=== PATIENT | female | born 1995 | race African-American/Black ===

== ENCOUNTER 2020-08-12 21:10 | Emergency (ER) | payer BC, MEDICAID ==
[~2020-08-12] VITALS: Ht 160 cm; Wt 65.6 kg
[2020-08-12] MEDS ORDERED: ONDANSETRON HCL 4MG/2ML INJ IV STA ×2 (23:06→23:43)
[2020-08-12] MEDS ORDERED: SODIUM CHLORIDE 0.9% 1,000 ML IV ONE ×2 (23:15→23:45)
[2020-08-12] MEDS ORDERED: MORPHINE SULFATE 4 MG/ML CPJ (NOT FOR IM USE) IV ONE (23:15)
[2020-08-12] MEDS ORDERED: ACETAMINOPHEN 325MG TABLET PO STA (23:43)
[2020-08-13] MEDS ORDERED: TOPUD PO (00:08)
[2020-08-13 01:35] VITALS: BP 104/42
== END 2020-08-13 01:50 | disposition home or self-care (01) ==
LOC: ER 21:10
DX: O26.892 Other specified pregnancy related conditions, second trimester (principal); R51.9 Headache, unspecified; R94.6 Abnormal results of thyroid function studies; Z3A.19 19 weeks gestation of pregnancy
CPT/HCPCS: 96361; 96374; 99283; J2405; J7030

== ENCOUNTER 2021-01-01 14:14 | Inpatient (IN) | payer MEDICAID ==
[~2021-01-01] VITALS: Ht 162.6 cm; Wt 81.6 kg
[~2021-01-01 14:14] MED LIST: TOPUD PO
[2021-01-01] MEDS ORDERED: NALOXONE HCL 0.4 MG/ML 1ML VIAL IM PRN (15:45)
[2021-01-01] MEDS ORDERED: BUTORPHANOL TARTRATE 2 MG/ML VIAL IV PRN (15:45)
[2021-01-01] MEDS ORDERED: DEXT 5%/LR + PITOCIN 20UNITS/L 1,000 ML IV SCH (15:45)
[2021-01-01] MEDS ORDERED: METHYLERGONOVINE MALEATE 0.2 MG/ML IM PRN (15:45)
[2021-01-01] MEDS ORDERED: LIDOCAINE HCL 1% 20ML VIAL (Pyxis) INJ INFIL SCH (15:45)
[2021-01-01] MEDS ORDERED: CARBOPROST TROMETHAMINE 250 MCG/ML AMPUL IM PRN (15:45)
[2021-01-01 19:11] LABS: CLARITY URINE CLEAR (CLEAR); COLOR URINE YELLOW (YELLOW); KETONES URINE NEGATIVE (NEGATIVE); LEUKOCYTE ESTERASE URINE 2+ (NEGATIVE); NITRITE URINE NEGATIVE (NEGATIVE); OCCULT BLOOD URINE 2+ (NEGATIVE); PH URINE 6.5 (4.5-8.0); PROTEIN URINE NEGATIVE (NEGATIVE); SPECIFIC GRAVITY URINE 1.009 (1.005-1.030); UROBILINOGEN URINE 0.2 E.U./dL (0.2-1.0)
[2021-01-01 19:18] LABS: BASOPHILS % 0.2 % (0.0-2.0); EOSINOPHILS % 1.4 % (0.0-5.0); HEMATOCRIT. 37.4 % (36.0-48.0); LYMPHOCYTES % 15.2 % (20.0-50.0); MEAN CORPUSCULAR VOLUME 90.1 fL (81.0-99.0); MEAN PLATELET VOLUME 10.4 fl (7.4-10.4); MONOCYTES % 11.2 % (2.0-8.0); PLATELET 170 x1000/uL (130-400); RED BLOOD CELL COUNT 4.15 mill/uL (4.2-5.4); RED CELL DISTRIBUTION WIDTH 15.5 % (11.6-14.6)
[2021-01-01 19:21] LABS: INR 0.9; PROTHROMBIN TIME 9.9 sec (9.6-11.0)
[2021-01-01 19:22] LABS: *AMPHETAMINES SCREEN URINE NEGATIVE (NEGATIVE); *BARBITURATES SCREEN URINE NEGATIVE (NEGATIVE); *BENZODIAZEPINES SCREEN URINE NEGATIVE (NEGATIVE); *COCAINE SCREEN URINE NEGATIVE (NEGATIVE); CANNABINOID URINE SCREEN NEGATIVE (NEGATIVE); METHADONE URINE SCREEN NEGATIVE (NEGATIVE); OPIATES URINE SCREEN NEGATIVE (NEGATIVE); PHENCYCLIDINE URINE SCREEN NEGATIVE (NEGATIVE)
[2021-01-01] MEDS: LACTATED RINGERS 1,000 ML IV SCH ×2 (19:31→21:18)
[2021-01-01 20:14] LABS: HEPATITIS B SURFACE ANTIGEN NEGATIVE
[2021-01-01] MEDS ORDERED: ROPIVACAINE HCL/PF EPIDURAL 200 ML EPI SCH (21:15)
[2021-01-01] MEDS ORDERED: ROPIVACAINE HCL/PF EPIDURAL 200 ML EPI ONE (21:21)
[2021-01-01] MEDS ORDERED: FENTANYL CITRATE/PF 50MCG/ML 2ML VIAL ONE (21:21)
[2021-01-02] MEDS: LACTATED RINGERS 1,000 ML IV SCH (02:56)
[2021-01-02] MEDS ORDERED: IBUPROFEN 400MG TABLET PO PRN (06:45)
[2021-01-02] MEDS ORDERED: DIPHENHYDRAMINE 25MG CAPSULE PO PRN (06:45)
[2021-01-02] MEDS ORDERED: BENZOCAINE/LANOLIN/ALOE VERA SPRAY TOP PRN (06:45)
[2021-01-02] MEDS ORDERED: RHO(D) IMMUNE GLOBULIN 300 MCG/SYR IM PRN (06:45)
[2021-01-02] MEDS ORDERED: LANOLIN OINT 7GM TUBE TOP PRN (06:45)
[2021-01-02] MEDS ORDERED: ACETAMINOPHEN WITH CODEINE 300/30MG TABLET PO PRN (06:45)
[2021-01-02] MEDS ORDERED: GLYCERIN/WITCH HAZEL LEAF MEDICATED PAD TOP PRN (06:45)
[2021-01-02] MEDS ORDERED: BISACODYL 10MG SUPP PR PRN (06:45)
[2021-01-02] MEDS ORDERED: HEMORRHOIDAL SUPP PR PRN (06:45)
[2021-01-02] MEDS ORDERED: DEXT 5%/LR + PITOCIN 20UNITS/L 1,000 ML IV SCH (06:45)
[2021-01-02 08:00] VITALS: BP 118/65
[2021-01-02 09:00] VITALS: BP 121/69
[2021-01-02] MEDS ORDERED: MAGNESIUM/ALUMINUM HYDROXIDE/SIMETHICONE 30ML UDC PO SCH (09:00)
[2021-01-02] MEDS ORDERED: SIMETHICONE 80MG TABLET CHEW PO SCH (09:00)
[2021-01-02] MEDS: IBUPROFEN 800MG TABLET PO PRN ×3 (09:04→21:11)
[2021-01-02] MEDS: PRENATAL VIT/FE FUMARATE/FA TABLET PO SCH (09:04)
[2021-01-02 15:59] VITALS: BP 124/82
[2021-01-02 19:30] VITALS: BP 110/69
[2021-01-02] MEDS ORDERED: DOCUSATE SODIUM 100MG CAPSULE PO SCH (21:00)
[2021-01-03 04:00] VITALS: BP 119/62
[2021-01-03] MEDS ORDERED: FERROUS SULFATE 325MG TABLET PO SCH (07:30)
[2021-01-03 07:53] LABS: BASOPHILS % 0.3 % (0.0-2.0); EOSINOPHILS % 0.9 % (0.0-5.0); LYMPHOCYTES % 13.3 % (20.0-50.0); MEAN CORPUSCULAR VOLUME 89.7 fL (81.0-99.0); MONOCYTES % 10.9 % (2.0-8.0); NEUTROPHILS % 74.6 % (40.0-76.0); PLATELET 164 x1000/uL (130-400); RED BLOOD CELL COUNT 3.45 mill/uL (4.2-5.4); RED CELL DISTRIBUTION WIDTH 15.2 % (11.6-14.6)
[2021-01-03] MEDS: IBUPROFEN 800MG TABLET PO PRN ×2 (08:29→14:45)
[2021-01-03] MEDS: PRENATAL VIT/FE FUMARATE/FA TABLET PO SCH (08:29)
[2021-01-03 08:30] VITALS: BP 113/65
[2021-01-03 15:42] VITALS: BP 124/71
== END 2021-01-03 17:30 | disposition home or self-care (01) | DRG 560 ==
LOC: OBSVTOIN 14:14 → 8 EST LDRP 14:14 → 8EST 01-02 08:00
PROVIDERS: ADMIT Obstetrics & Gynecology; ATTEND Obstetrics & Gynecology
PROC: 10D07Z6 Extraction of Products of Conception, Vacuum, Via Natural or Artificial Opening (ICD-10-PCS; principal; 2021-01-02)
PROC: 3E0R3BZ Introduction of Anesthetic Agent into Spinal Canal, Percutaneous Approach (ICD-10-PCS; 2021-01-02)
PROC: 00HU33Z Insertion of Infusion Device into Spinal Canal, Percutaneous Approach (ICD-10-PCS; 2021-01-02)
PROC: 0KQM0ZZ Repair Perineum Muscle, Open Approach (ICD-10-PCS; 2021-01-02)
DX: O70.1 Second degree perineal laceration during delivery (principal); Z37.0 Single live birth; Z20.822 Contact with and (suspected) exposure to COVID-19; Z3A.39 39 weeks gestation of pregnancy; Z79.899 Other long term (current) drug therapy
CPT/HCPCS: 36415; 76805; 76818; 80305; 81003; 85025; 86592; 86762; 86850; 86900; 87340; 87426; 99281; G0378; J2590; J2795; J3010; J3490; J7120; A4315